=== PATIENT | female | born 1960 | race Caucasian/White ===

== ENCOUNTER → 2016-06-07 | Outpatient (CLI) | payer OTHER ==
[~2016-06-07] MED LIST: AUGMENTIN875 MG PO; EFFEXOR75 MG PO; ERGOCALCIF50000 UNIT PO; FOSAMAX70 MG PO; INDERAL80 MG PO; LIPITOR40 MG PO; LORCET 5-325 M1 EACH PO; PLAQUENIL200 MG PO; PREMARIN0.3 MG PO; PREMARIN0.625 MG PO; SYNTHROID100 MCG PO; ULTRAM50 MG PO; ZETIA10 MG PO; [UNRECOGNIZED DRUG - REMARK]
== END | disposition home or self-care (01) ==
LOC: CDC 09:21
DX: Z01.810 Encounter for preprocedural cardiovascular examination (principal); M47.896 Other spondylosis, lumbar region; M54.17 Radiculopathy, lumbosacral region; M43.10 Spondylolisthesis, site unspecified; M54.5 Low back pain
CPT/HCPCS: 93000

== ENCOUNTER 2016-06-13 05:06 | Inpatient (IN) | payer OTHER ==
[~2016-06-13] VITALS: Ht 167.6 cm; Wt 61.2 kg
[2016-06-13 06:15] VITALS: BP 135/72
[2016-06-13] MEDS ORDERED: PROPRANOLOL HCL80 MG PO (16:38)
[2016-06-13 17:16] VITALS: BP 112/57
[2016-06-13 19:26] VITALS: BP 122/63
[2016-06-13 20:00] VITALS: BP 108/55
[2016-06-13 23:53] VITALS: BP 103/51
[2016-06-14 04:00] VITALS: BP 108/55
[2016-06-14 08:36] VITALS: BP 107/60
[2016-06-14 12:21] VITALS: BP 122/60
[2016-06-14 15:42] VITALS: BP 131/61
[2016-06-14 16:16] VITALS: BP 128/72
[2016-06-14] MEDS ORDERED: LORCET 5-325 M1 EACH PO (17:25)
[2016-06-14] MEDS ORDERED: CYCLOBENZAPRINE10 MG PO (17:25)
== END 2016-06-14 18:32 | disposition home or self-care (01) | DRG 455 ==
LOC: 2SOUTH 05:06 → 3EAST 13:30 → 2SOUTH 14:11 → 3EAST 06-14 18:32
DX: M43.16 Spondylolisthesis, lumbar region (principal); M47.26 Other spondylosis with radiculopathy, lumbar region; M48.06 Spinal stenosis, lumbar region; M81.0 Age-related osteoporosis without current pathological fracture; M85.88 Other specified disorders of bone density and structure, other site; F32.9 Major depressive disorder, single episode, unspecified; M79.7 Fibromyalgia; E78.2 Mixed hyperlipidemia; L93.0 Discoid lupus erythematosus; E03.9 Hypothyroidism, unspecified; E55.9 Vitamin D deficiency, unspecified; K21.9 Gastro-esophageal reflux disease without esophagitis
CPT/HCPCS: 72100; 76000; 94799; C1713; J0330; J0690; J1100; J1170; J2405; J2930; J3010; J3370; J3480; S0020

== ENCOUNTER 2016-12-19 11:09 | Emergency (ER) | payer OTHER ==
[~2016-12-19] VITALS: Ht 167.6 cm; Wt 65.5 kg
[~2016-12-19 11:09] MED LIST changes: +CYCLOBENZAPRINE10 MG PO; +PROPRANOLOL HCL80 MG PO
[2016-12-19 11:51] LABS: HEMATOCRIT 38.2 % (36.0-46.0); MCH 27.4 PG (29.0-34.0); MCHC 31.9 G/DL (30.0-36.0); MCV 85.7 FL (83-99); MEAN PLAT.VOLUME 9.4 uM^3 (9.5-12.4); PLATELET COUNT 230 K/uL (156-360); RBC DIS.WIDTH-CV 13.6 % (11.8-14.6); RBC DIS.WIDTH-SD 42.9 % (39-53); RED BLOOD COUNT 4.46 M/uL (3.80-5.20); WHITE BLOOD COUNT 3.7 K/uL (4.1-10.2)
[2016-12-19 12:02] LABS: CHLORIDE 104 mEq/L (99-109); POTASSIUM 3.9 mEq/L (3.7-5.4); SODIUM 140 mEq/L (136-147)
[2016-12-19 12:04] LABS: GLUCOSE 90 mg/dL (70-99)
[2016-12-19 12:06] LABS: ANION GAP 8 MEQ/L (2-14); TOTAL BILIRUBIN 0.3 mg/dL (0.0-1.0)
[2016-12-19 12:08] LABS: ALKALINE PHOSPHATASE 109 IU/L (3-129); GFR ESTIMATE (CALCULATED) > 59 mL/min/
[2016-12-19 12:09] LABS: UREA NITROGEN (BUN) 12 mg/dL (9-23)
[2016-12-19 14:41] VITALS: BP 122/79
== END 2016-12-19 14:42 | disposition home or self-care (01) ==
LOC: EME 11:09 → TRA 11:09 → EME 14:42
PROVIDERS: Emergency Medicine
DX: S30.0XXA Contusion of lower back and pelvis, initial encounter (principal); V43.52XA Car driver injured in collision with other type car in traffic accident, initial encounter; Y92.410 Unspecified street and highway as the place of occurrence of the external cause; Z98.1 Arthrodesis status; Z98.890 Other specified postprocedural states; E78.5 Hyperlipidemia, unspecified
CPT/HCPCS: 72100; 80053; 85027; 99281; 99284

== ENCOUNTER 2017-05-03 23:39 | Emergency (ER) | payer OTHER ==
[~2017-05-03] VITALS: Ht 167.6 cm; Wt 64.0 kg
[2017-05-04] MEDS ORDERED: PERCOCET 5/31 TABLET PO (02:09)
[2017-05-04 02:29] VITALS: BP 116/71
== END 2017-05-04 02:34 | disposition home or self-care (01) ==
LOC: EME → EDBD 23:39 → EME 23:39
DX: S32.592A Other specified fracture of left pubis, initial encounter for closed fracture (principal); W18.30XA Fall on same level, unspecified, initial encounter; Y92.003 Bedroom of unspecified non-institutional (private) residence as the place of occurrence of the external cause; M32.9 Systemic lupus erythematosus, unspecified; E78.5 Hyperlipidemia, unspecified
CPT/HCPCS: 73502; 73552; 99281; 99284